=== PATIENT | female | born 1940 | race Caucasian/White ===

== ENCOUNTER 2017-10-29 12:02 | Observation (INO) | payer MEDICARE, OTHER ==
[~2017-10-29] VITALS: Ht 149.9 cm; Wt 63.0 kg
[~2017-10-29 12:02] MED LIST: ASPI-1053 PO; BENA10TA10 PO; CITA-279 PO; PANT-47 PO; SIMV20TA PO
[2017-10-29 12:26] LABS: BASOPHILS % (AUTO) 0.7 % (0-1); EOSINOPHILS # (AUTO) 0.1 X10'3 (0-0.9); EOSINOPHILS % (AUTO) 1.4 % (0-6); HEMATOCRIT 33.3 % (35.0-45.0); HEMOGLOBIN 11.6 g/dl (12.0-16.0); LYMPHOCYTES # (AUTO) 1.6 X10'3 (1.1-4.8); LYMPHOCYTES % (AUTO) 22.9 % (21-51); MEAN CORPUSCULAR HEMOGLOBIN 29.1 PG (27.0-31.0); MEAN CORPUSCULAR HGB CONC 34.7 % (33.0-36.5); MEAN CORPUSCULAR VOLUME 83.7 FL (78-98); MEAN PLATELET VOLUME 6.9 FL (7.4-10.4); MONOCYTES # (AUTO) 0.7 X10'3 (0-0.9); MONOCYTES % (AUTO) 10.2 % (2-12); NEUTROPHILS # (AUTO) 4.5 X10'3 (1.8-7.7); NEUTROPHILS % (AUTO) 64.8 % (42-75); PLATELET COUNT 328 X10'3 (140-440); RED BLOOD COUNT 3.98 X10'6 (4.20-5.60); RED CELL DISTRIBUTION WIDTH 13.3 % (11.5-14.5)
[2017-10-29 12:36] LABS: PARTIAL THROMBOPLASTIN TIME 25 SECONDS (22-32); PROTHROMBIN TIME 10.1 SECONDS (9.0-12.0)
[2017-10-29 12:57] LABS: ALANINE AMINOTRANSFERASE 14 U/L (12-78); ALBUMIN/GLOBULIN RATIO 1.2 (1.1-1.5); ALKALINE PHOSPHATASE 87 IU/L (46-116); ANION GAP 13 (8-16); ASPARTATE AMINO TRANSFERASE 20 U/L (10-37); BILIRUBIN,TOTAL 0.3 MG/DL (0.1-1.0); BLOOD UREA NITROGEN 33 MG/DL (7-18); BUN/CREATININE RATIO 19.8 (6.6-38.0); CALCIUM 9.3 MG/DL (8.5-10.1); CHLORIDE 94 MMOL/L (99-107); CREATININE 1.67 MG/DL (0.40-0.90); GLUCOSE 132 MG/DL (70-104); POTASSIUM 4.7 MMOL/L (3.5-5.1); SODIUM 130 MMOL/L (135-145); TOTAL PROTEIN 7.3 G/DL (6.4-8.2); eGFR 30 ML/MIN
[2017-10-29] MEDS ORDERED: aspirin 325mg tablet PO ONE (14:10)
[2017-10-29] MEDS ORDERED: NITR0.4T51 SL (14:21)
[2017-10-29] MEDS ORDERED: AMLO5TAB4 PO (14:21)
[2017-10-29] MEDS ORDERED: potassium Cl 20 mEq SR tablet PO PRN ×2 (14:35)
[2017-10-29] MEDS ORDERED: potassium Cl 40MEQ/NS 500ml 500 ML IV PRN ×2 (14:35)
[2017-10-29] MEDS ORDERED: HYDROcodone/acetaminophen 10/325mg tab PO PRN (14:35)
[2017-10-29] MEDS ORDERED: acetaminophen 325mg tablet PO PRN (14:35)
[2017-10-29] MEDS ORDERED: HYDROcodone/acetaminophen 5mg/325mg tablet PO PRN (14:35)
[2017-10-29] MEDS ORDERED: ondansetron/PF 4mg/2ml inj IV PRN (14:35)
[2017-10-29] MEDS ORDERED: magnesium Cl slow-release 64mg tablet PO PRN (14:35)
[2017-10-29] MEDS ORDERED: magnesium 4gm in 100ml NS 100 ML IV PRN (14:35)
[2017-10-29] MEDS ORDERED: morphine 4 MG/ML inj SYRINge IV PRN ×2 (14:35)
[2017-10-29] MEDS ORDERED: mag hydrox/Alum hydrox/simeth 30ml oral suspension PO PRN (14:35)
[2017-10-29] MEDS ORDERED: magnesium hydroxide 30ml (MOM) UD suspension PO PRN (14:35)
[2017-10-29] MEDS ORDERED: magnesium 2GM in 50ml NS 50 ML IV PRN (14:35)
[2017-10-29] MEDS: K and/or MAG REPLACEMENT MC SCH (14:42)
[2017-10-29] MEDS ORDERED: magnesium/D5W IVPB 100 ML IV PRN (14:45)
[2017-10-29] MEDS: normal saline 1000ml 1,000 ML IV SCH ×2 (14:54→20:36)
[2017-10-29] MEDS ORDERED: nitroGLYCERIN 0.4mg SUBLingual tab SL PRN (16:20)
[2017-10-29] MEDS: pantoprazole 40mg Tablet.DR PO SCH (16:20)
[2017-10-29] MEDS: citalopram 20mg tablet PO SCH (16:20)
[2017-10-29] MEDS: heparin, porcine 5000 units/ml vial SQ SCH (16:44)
[2017-10-29 20:22] VITALS: BP 137/49
[2017-10-29] MEDS: metoprolol tartrate 12.5mg (1/2 tablet) PO SCH (20:28)
[2017-10-29] MEDS: lisinopril 20mg tablet PO SCH (20:28)
[2017-10-29] MEDS ORDERED: temazepam 15mg capsule PO PRN (21:00)
[2017-10-29 23:00] VITALS: BP 119/38
[2017-10-30] MEDS: heparin, porcine 5000 units/ml vial SQ SCH ×3 (01:13→16:00)
[2017-10-30 01:15] LABS: HEMATOCRIT 33.4 % (35.0-45.0); HEMOGLOBIN 10.9 g/dl (12.0-16.0); MEAN CORPUSCULAR HGB CONC 32.5 % (33.0-36.5); MEAN PLATELET VOLUME 7.3 FL (7.4-10.4); PLATELET COUNT 283 X10'3 (140-440); RED BLOOD COUNT 3.88 X10'6 (4.20-5.60); RED CELL DISTRIBUTION WIDTH 12.9 % (11.5-14.5); WHITE BLOOD COUNT 5.9 X10'3 (4.5-11.0)
[2017-10-30 01:24] LABS: ALBUMIN 3.5 G/DL (3.4-5.0); ANION GAP 10 (8-16); BLOOD UREA NITROGEN 33 MG/DL (7-18); BUN/CREATININE RATIO 23.2 (6.6-38.0); CALCIUM 9.4 MG/DL (8.5-10.1); CHLORIDE 100 MMOL/L (99-107); CREATININE 1.42 MG/DL (0.40-0.90); GLUCOSE 92 MG/DL (70-104); MAGNESIUM 1.9 MG/DL (1.5-2.4); POTASSIUM 4.5 MMOL/L (3.5-5.1); SODIUM 135 MMOL/L (135-145); TOTAL CARBON DIOXIDE 24.8 MMOL/L (24-32); eGFR 36 ML/MIN
[2017-10-30 03:00] VITALS: BP 105/42
[2017-10-30 05:30] VITALS: BP 137/47
[2017-10-30] MEDS: lisinopril 20mg tablet PO SCH (07:58)
[2017-10-30] MEDS: pantoprazole 40mg Tablet.DR PO SCH (07:58)
[2017-10-30] MEDS: citalopram 20mg tablet PO SCH (07:59)
[2017-10-30] MEDS ORDERED: atorvastatin 10mg tablet PO SCH (08:00)
[2017-10-30] MEDS ORDERED: aspirin 81mg tab.chew PO SCH (08:00)
[2017-10-30] MEDS: metoprolol tartrate 12.5mg (1/2 tablet) PO SCH (08:00)
[2017-10-30] MEDS: K and/or MAG REPLACEMENT MC SCH (08:00)
[2017-10-30] MEDS: normal saline 1000ml 1,000 ML IV SCH (08:18)
[2017-10-30 11:00] VITALS: BP 136/41
[2017-10-30 15:00] VITALS: BP 140/42
[2017-10-30] MEDS ORDERED: METO25TA6 PO (15:08)
== END 2017-10-30 17:20 | disposition home or self-care (01) ==
LOC: ER 12:03 → ED HOLD 14:32 → PCU 3S 20:07
PROVIDERS: ADMIT Family Medicine; ATTEND Family Medicine
DX: R07.89 Other chest pain (principal); I12.9 Hypertensive chronic kidney disease with stage 1 through stage 4 chronic kidney disease, or unspecified chronic kidney disease; N18.3 Chronic kidney disease, stage 3 (moderate); E78.5 Hyperlipidemia, unspecified; E87.1 Hypo-osmolality and hyponatremia; D64.9 Anemia, unspecified; F32.9 Major depressive disorder, single episode, unspecified; E78.00 Pure hypercholesterolemia, unspecified; I25.10 Atherosclerotic heart disease of native coronary artery without angina pectoris; R01.1 Cardiac murmur, unspecified; K21.9 Gastro-esophageal reflux disease without esophagitis; Z86.73 Personal history of transient ischemic attack (TIA), and cerebral infarction without residual deficits; Z87.19 Personal history of other diseases of the digestive system; Z80.1 Family history of malignant neoplasm of trachea, bronchus and lung; Z90.710 Acquired absence of both cervix and uterus
CPT/HCPCS: 36415; 71045; 80048; 80053; 83735; 84484; 85025; 85027; 85610; 85730; 87070; 96360; 96361; 96372; 99285; G0378; J1644; J7030

== ENCOUNTER 2019-01-02 11:00 | Emergency (ER) | payer MEDICARE, OTHER ==
[~2019-01-02] VITALS: Ht 152.4 cm; Wt 59.1 kg
[~2019-01-02 11:00] MED LIST changes: +AMLO5TAB4 PO; -BENA10TA10 PO; +BENA10TA75 PO; +CITA-157 PO; -CITA-279 PO; +METO25TA6 PO; +NITR0.4T51 SL
[2019-01-02 11:27] VITALS: BP 166/72
[2019-01-02] MEDS ORDERED: METH4TAB81 PO (11:40)
== END 2019-01-02 12:12 | disposition home or self-care (01) ==
LOC: ER 11:01
DX: L29.9 Pruritus, unspecified (principal); I25.10 Atherosclerotic heart disease of native coronary artery without angina pectoris; E78.00 Pure hypercholesterolemia, unspecified; I10 Essential (primary) hypertension; Z88.6 Allergy status to analgesic agent; Z86.73 Personal history of transient ischemic attack (TIA), and cerebral infarction without residual deficits; Z88.2 Allergy status to sulfonamides; Z79.82 Long term (current) use of aspirin; Z79.899 Other long term (current) drug therapy
CPT/HCPCS: 99283

== ENCOUNTER 2020-10-29 06:24 | Emergency (ER) | payer MEDICARE, OTHER ==
[~2020-10-29] VITALS: Ht 152.4 cm; Wt 65.5 kg
[~2020-10-29 06:24] MED LIST changes: +LOP25T PO; +METH4TAB81 PO; -METO25TA6 PO
[2020-10-29] MEDS ORDERED: clopidogrel 75mg tablet PO ONE (07:45)
[2020-10-29 07:48] LABS: BASOPHILS # (AUTO) 0.1 X10'3 (0-0.2); BASOPHILS % (AUTO) 0.8 % (0-1); EOSINOPHILS # (AUTO) 0.2 X10'3 (0-0.9); EOSINOPHILS % (AUTO) 3.2 % (0-6); HEMATOCRIT 34.6 % (35.0-45.0); HEMOGLOBIN 11.6 g/dl (12.0-16.0); LYMPHOCYTES # (AUTO) 1.2 X10'3 (1.1-4.8); LYMPHOCYTES % (AUTO) 16.5 % (21-51); MEAN CORPUSCULAR HEMOGLOBIN 29.7 PG (27.0-31.0); MEAN CORPUSCULAR HGB CONC 33.6 g/dL (33.0-36.5); MEAN CORPUSCULAR VOLUME 88.3 FL (78-98); MONOCYTES # (AUTO) 0.7 X10'3 (0-0.9); MONOCYTES % (AUTO) 9.3 % (2-12); NEUTROPHILS # (AUTO) 5.1 X10'3 (1.8-7.7); NEUTROPHILS % (AUTO) 70.2 % (42-75); PLATELET COUNT 265 X10'3 (140-440); RED BLOOD COUNT 3.92 X10'6 (4.20-5.60); RED CELL DISTRIBUTION WIDTH 13.3 % (11.5-14.5); WHITE BLOOD COUNT 7.3 X10'3 (4.5-11.0)
[2020-10-29] MEDS ORDERED: CLOP75TA15 PO (08:00)
[2020-10-29] MEDS ORDERED: ATOR40TA71 PO (08:00)
[2020-10-29 08:01] LABS: PARTIAL THROMBOPLASTIN TIME 25 SECONDS (22-32)
[2020-10-29 08:02] LABS: ALANINE AMINOTRANSFERASE 15 U/L (12-78); ALBUMIN 3.6 G/DL (3.4-5.0); ALBUMIN/GLOBULIN RATIO 1.1 (1.1-1.5); ALKALINE PHOSPHATASE 63 IU/L (46-116); ANION GAP 8 (8-16); ASPARTATE AMINO TRANSFERASE 21 U/L (10-37); BILIRUBIN,TOTAL 0.4 MG/DL (0.1-1.0); BLOOD UREA NITROGEN 30 MG/DL (7-18); BUN/CREATININE RATIO 14.9 (6.6-38.0); CALCIUM 9.7 MG/DL (8.5-10.1); CHLORIDE 108 MMOL/L (99-107); CREATININE 2.02 MG/DL (0.40-0.90); GLUCOSE 101 MG/DL (70-104); SODIUM 144 MMOL/L (135-145); TOTAL CARBON DIOXIDE 28.2 MMOL/L (24-32); TOTAL PROTEIN 6.9 G/DL (6.4-8.2); eGFR 24 ML/MIN
[2020-10-29 08:40] VITALS: BP 163/76
== END 2020-10-29 08:42 | disposition home or self-care (01) ==
LOC: ER 06:25
DX: I63.9 Cerebral infarction, unspecified (principal); R42 Dizziness and giddiness; N18.9 Chronic kidney disease, unspecified; I25.10 Atherosclerotic heart disease of native coronary artery without angina pectoris; I12.9 Hypertensive chronic kidney disease with stage 1 through stage 4 chronic kidney disease, or unspecified chronic kidney disease; E78.00 Pure hypercholesterolemia, unspecified; Z86.73 Personal history of transient ischemic attack (TIA), and cerebral infarction without residual deficits; Z79.82 Long term (current) use of aspirin; Z79.899 Other long term (current) drug therapy; Z88.2 Allergy status to sulfonamides; Z88.8 Allergy status to other drugs, medicaments and biological substances
CPT/HCPCS: 36415; 70450; 71045; 80053; 82948; 84484; 85025; 85610; 85730; 93005; 99285

== ENCOUNTER 2021-06-22 15:58 | Emergency (ER) | payer MEDICARE, OTHER ==
[~2021-06-22] VITALS: Ht 149.9 cm; Wt 54.5 kg
[~2021-06-22 15:58] MED LIST changes: +ATOR40TA71 PO; +CLOP75TA15 PO
[2021-06-22 16:54] VITALS: BP 130/90
[2021-06-22 17:51] LABS: BASOPHILS # (AUTO) 0.1 X10'3 (0-0.2); BASOPHILS % (AUTO) 1.1 % (0-1); EOSINOPHILS # (AUTO) 0.3 X10'3 (0-0.9); EOSINOPHILS % (AUTO) 2.9 % (0-6); HEMATOCRIT 37.7 % (35.0-45.0); HEMOGLOBIN 12.7 g/dl (12.0-16.0); LYMPHOCYTES # (AUTO) 2.2 X10'3 (1.1-4.8); LYMPHOCYTES % (AUTO) 23.6 % (21-51); MEAN CORPUSCULAR HEMOGLOBIN 29.1 PG (27.0-31.0); MEAN CORPUSCULAR HGB CONC 33.6 g/dL (33.0-36.5); MEAN CORPUSCULAR VOLUME 86.5 FL (78-98); MEAN PLATELET VOLUME 7.1 FL (7.4-10.4); MONOCYTES % (AUTO) 10.6 % (2-12); NEUTROPHILS # (AUTO) 5.8 X10'3 (1.8-7.7); NEUTROPHILS % (AUTO) 61.8 % (42-75); PLATELET COUNT 318 X10'3 (140-440); RED BLOOD COUNT 4.36 X10'6 (4.20-5.60); RED CELL DISTRIBUTION WIDTH 13.7 % (11.5-14.5); WHITE BLOOD COUNT 9.5 X10'3 (4.5-11.0)
[2021-06-22 18:05] LABS: APTT 25 SECONDS (22-32)
[2021-06-22] MEDS ORDERED: PROCHC RC (21:21)
== END 2021-06-22 21:44 | disposition home or self-care (01) ==
LOC: ER 15:59
DX: K64.9 Unspecified hemorrhoids (principal); I25.10 Atherosclerotic heart disease of native coronary artery without angina pectoris; E78.00 Pure hypercholesterolemia, unspecified; I10 Essential (primary) hypertension; Z86.73 Personal history of transient ischemic attack (TIA), and cerebral infarction without residual deficits; Z88.2 Allergy status to sulfonamides; Z88.8 Allergy status to other drugs, medicaments and biological substances; Z79.82 Long term (current) use of aspirin; Z79.899 Other long term (current) drug therapy; Z87.19 Personal history of other diseases of the digestive system
CPT/HCPCS: 36415; 85025; 85610; 85730; 99283

== ENCOUNTER 2021-07-17 16:53 | Emergency (ER) | payer MEDICARE, OTHER ==
[~2021-07-17] VITALS: Ht 152.4 cm; Wt 63.6 kg
[~2021-07-17 16:53] MED LIST changes: +PROCHC RC
[2021-07-17 18:11] LABS: BASOPHILS # (AUTO) 0.1 X10'3 (0-0.2); BASOPHILS % (AUTO) 0.7 % (0-1); EOSINOPHILS # (AUTO) 0.3 X10'3 (0-0.9); HEMOGLOBIN 11.7 g/dl (12.0-16.0); LYMPHOCYTES # (AUTO) 1.3 X10'3 (1.1-4.8); LYMPHOCYTES % (AUTO) 12.6 % (21-51); MEAN CORPUSCULAR HGB CONC 33.5 g/dL (33.0-36.5); MEAN CORPUSCULAR VOLUME 86.6 FL (78-98); MEAN PLATELET VOLUME 7.3 FL (7.4-10.4); MONOCYTES # (AUTO) 0.9 X10'3 (0-0.9); MONOCYTES % (AUTO) 9.2 % (2-12); NEUTROPHILS # (AUTO) 7.5 X10'3 (1.8-7.7); NEUTROPHILS % (AUTO) 74.5 % (42-75); PLATELET COUNT 309 X10'3 (140-440); RED BLOOD COUNT 4.04 X10'6 (4.20-5.60); RED CELL DISTRIBUTION WIDTH 13.8 % (11.5-14.5); WHITE BLOOD COUNT 10.1 X10'3 (4.5-11.0)
[2021-07-17 18:41] LABS: ALANINE AMINOTRANSFERASE 14 U/L (12-78); ALBUMIN 4.1 G/DL (3.4-5.0); ALBUMIN/GLOBULIN RATIO 1.5 (1.1-1.5); ANION GAP 15 (8-16); ASPARTATE AMINO TRANSFERASE 22 U/L (10-37); BILIRUBIN,TOTAL 0.3 MG/DL (0.1-1.0); BLOOD UREA NITROGEN 28 MG/DL (7-18); BUN/CREATININE RATIO 12.8 (6.6-38.0); CALCIUM 9.5 MG/DL (8.5-10.1); CHLORIDE 103 MMOL/L (99-107); CREATININE 2.19 MG/DL (0.40-0.90); GLUCOSE 100 MG/DL (70-104); POTASSIUM 4.1 MMOL/L (3.5-5.1); SODIUM 140 MMOL/L (135-145); TOTAL CARBON DIOXIDE 22.5 MMOL/L (24-32); TOTAL PROTEIN 6.9 G/DL (6.4-8.2); eGFR 22 ML/MIN
[2021-07-17 19:58] VITALS: BP 175/107
== END 2021-07-17 21:14 | disposition home or self-care (01) ==
LOC: ER 16:53
DX: I12.9 Hypertensive chronic kidney disease with stage 1 through stage 4 chronic kidney disease, or unspecified chronic kidney disease (principal); N18.9 Chronic kidney disease, unspecified; R42 Dizziness and giddiness; I25.10 Atherosclerotic heart disease of native coronary artery without angina pectoris; E78.00 Pure hypercholesterolemia, unspecified; Z86.73 Personal history of transient ischemic attack (TIA), and cerebral infarction without residual deficits; Z60.2 Problems related to living alone; Z88.8 Allergy status to other drugs, medicaments and biological substances; Z88.2 Allergy status to sulfonamides; Z79.82 Long term (current) use of aspirin; Z79.899 Other long term (current) drug therapy
CPT/HCPCS: 36415; 80053; 85025; 93005; 99284

== ENCOUNTER 2021-08-06 13:01 | Inpatient (IN) | payer MEDICARE, OTHER ==
[~2021-08-06] VITALS: Ht 134.6 cm; Wt 63.6 kg
[2021-08-06 13:37] LABS: BASOPHILS # (AUTO) 0.1 X10'3 (0-0.2); BASOPHILS % (AUTO) 0.7 % (0-1); EOSINOPHILS # (AUTO) 0.2 X10'3 (0-0.9); EOSINOPHILS % (AUTO) 2.3 % (0-6); HEMOGLOBIN 11.8 g/dl (12.0-16.0); LYMPHOCYTES # (AUTO) 1.2 X10'3 (1.1-4.8); LYMPHOCYTES % (AUTO) 11.6 % (21-51); MEAN CORPUSCULAR HEMOGLOBIN 28.5 PG (27.0-31.0); MEAN CORPUSCULAR HGB CONC 32.9 g/dL (33.0-36.5); MEAN CORPUSCULAR VOLUME 86.5 FL (78-98); MONOCYTES % (AUTO) 9.5 % (2-12); NEUTROPHILS # (AUTO) 7.7 X10'3 (1.8-7.7); NEUTROPHILS % (AUTO) 75.9 % (42-75); PLATELET COUNT 313 X10'3 (140-440); RED BLOOD COUNT 4.16 X10'6 (4.20-5.60); RED CELL DISTRIBUTION WIDTH 13.7 % (11.5-14.5); WHITE BLOOD COUNT 10.2 X10'3 (4.5-11.0)
[2021-08-06 13:44] LABS: APTT 25 SECONDS (22-32)
[2021-08-06 13:51] LABS: ALANINE AMINOTRANSFERASE 10 U/L (12-78); ALBUMIN 3.8 G/DL (3.4-5.0); ALBUMIN/GLOBULIN RATIO 1.1 (1.1-1.5); ALKALINE PHOSPHATASE 74 IU/L (46-116); ANION GAP 11 (8-16); ASPARTATE AMINO TRANSFERASE 18 U/L (10-37); BILIRUBIN,TOTAL 0.3 MG/DL (0.1-1.0); BLOOD UREA NITROGEN 27 MG/DL (7-18); BUN/CREATININE RATIO 13.5 (6.6-38.0); CALCIUM 9.7 MG/DL (8.5-10.1); CHLORIDE 102 MMOL/L (99-107); GLUCOSE 135 MG/DL (70-104); POTASSIUM 4.3 MMOL/L (3.5-5.1); SODIUM 140 MMOL/L (135-145); TOTAL CARBON DIOXIDE 26.6 MMOL/L (24-32); TOTAL PROTEIN 7.3 G/DL (6.4-8.2); eGFR 24 ML/MIN
--- NOTE | 2021-08-06 16:30 | NUR ---
Patient ambulates to restroom with use of walker; gait steady.
[2021-08-06] MEDS ORDERED: temazepam 15mg capsule PO PRN (21:00)
[2021-08-06] MEDS ORDERED: ondansetron 4mg rapidly disintigrating tab PO PRN (21:40)
[2021-08-06] MEDS ORDERED: mag hydrox/Alum hydrox/simeth 30ml oral suspension PO PRN (21:40)
[2021-08-06] MEDS ORDERED: HYDROcodone/acetaminophen 5mg/325mg tablet PO PRN (21:40)
[2021-08-06] MEDS ORDERED: magnesium hydroxide 30ml (MOM) UD suspension PO PRN (21:40)
[2021-08-06] MEDS ORDERED: diphenhydrAMINE 25mg capsule PO PRN (21:40)
[2021-08-06] MEDS ORDERED: bisacodyl 10mg suppository rectal RC PRN (21:40)
[2021-08-06] MEDS ORDERED: ondansetron/PF 4mg/2ml inj IV PRN (21:40)
[2021-08-06] MEDS ORDERED: morphine 2 MG/ML inj. syringe IV PRN (21:40)
[2021-08-06] MEDS ORDERED: acetaminophen 650mg rectal suppository RC PRN (21:40)
[2021-08-06] MEDS ORDERED: acetaminophen 325mg tablet PO PRN ×2 (21:40)
[2021-08-06] MEDS: normal saline 1000ml 1,000 ML IV SCH (21:40)
[2021-08-06] MEDS ORDERED: diphenhydrAMINE 50 mg/ml inj IV PRN (21:40)
[2021-08-06 22:01] LABS: CLARITY,URINE CLEAR (Clear); COLOR,URINE YELLOW (Yellow); GLUCOSE, URINE NEGATIVE (Neg); KETONES,URINE NEGATIVE (Neg); LEUKOCYTE ESTERASE ,URINE NEGATIVE (Neg); NITRITES, URINE NEGATIVE (Neg); OCCULT BLOOD,URINE NEGATIVE (Neg); PH,URINE 6.5 (4.8-8.0); PROTEIN,URINE TRACE mg/dl (Neg); UROBILINOGEN,URINE 0.2 E.U/dL (0.2-1.0)
[2021-08-06 22:03] LABS: HEMOGLOBIN A1C 5.6 % (4.5-6.2)
[2021-08-06 22:09] LABS: UA COLLECTION TYPE NON-SPECIFIED
[2021-08-06 22:11] LABS: BACTERIA,URINE NONE SEEN /HPF (Neg); RBC,URINE 0-2 /HPF (0-2); WBC,URINE 0-4 /HPF (0-4)
[2021-08-06 22:12] LABS: MUCUS STRANDS FEW /LPF (Neg); SQUAMOUS EPITHELIAL CELL,UR FEW /LPF (FEW)
[2021-08-06 22:18] LABS: CREATINE KINASE 40 U/L (26-192); LIPASE 127 U/L (73-393); MAGNESIUM 2.2 MG/DL (1.5-2.4)
[2021-08-06 23:30] VITALS: BP 164/77
[2021-08-06] MEDS ORDERED: CLOP75TA34 PO (23:49)
[2021-08-06] MEDS ORDERED: PANT40TA54 PO (23:49)
[2021-08-06] MEDS ORDERED: SIMV-42 PO (23:49)
[2021-08-06] MEDS ORDERED: CITA20TA26 PO (23:49)
[2021-08-06] MEDS ORDERED: CARV3.122 PO (23:49)
[2021-08-07 02:00] VITALS: BP 143/60
[2021-08-07 06:00] VITALS: BP 149/57
[2021-08-07 06:28] LABS: BASOPHILS # (AUTO) 0.1 X10'3 (0-0.2); BASOPHILS % (AUTO) 0.9 % (0-1); EOSINOPHILS # (AUTO) 0.2 X10'3 (0-0.9); HEMATOCRIT 34.1 % (35.0-45.0); HEMOGLOBIN 11.3 g/dl (12.0-16.0); LYMPHOCYTES # (AUTO) 1.3 X10'3 (1.1-4.8); LYMPHOCYTES % (AUTO) 16.6 % (21-51); MEAN CORPUSCULAR HEMOGLOBIN 28.6 PG (27.0-31.0); MEAN CORPUSCULAR HGB CONC 33.1 g/dL (33.0-36.5); MEAN CORPUSCULAR VOLUME 86.5 FL (78-98); MONOCYTES # (AUTO) 0.8 X10'3 (0-0.9); NEUTROPHILS # (AUTO) 5.5 X10'3 (1.8-7.7); NEUTROPHILS % (AUTO) 69.5 % (42-75); PLATELET COUNT 233 X10'3 (140-440); RED BLOOD COUNT 3.94 X10'6 (4.20-5.60); RED CELL DISTRIBUTION WIDTH 13.5 % (11.5-14.5)
[2021-08-07 07:03] LABS: ALANINE AMINOTRANSFERASE 9 U/L (12-78); ALBUMIN 3.4 G/DL (3.4-5.0); ALBUMIN/GLOBULIN RATIO 1.1 (1.1-1.5); ALKALINE PHOSPHATASE 61 IU/L (46-116); ANION GAP 12 (8-16); ASPARTATE AMINO TRANSFERASE 19 U/L (10-37); BILIRUBIN,TOTAL 0.3 MG/DL (0.1-1.0); BLOOD UREA NITROGEN 23 MG/DL (7-18); BUN/CREATININE RATIO 13.9 (6.6-38.0); CALCIUM 9.4 MG/DL (8.5-10.1); CHLORIDE 108 MMOL/L (99-107); CHOL/HDL RATIO 3.2 (0.00-4.99); CHOLESTEROL 177 MG/DL (0-200); CREATININE 1.65 MG/DL (0.40-0.90); GLUCOSE 100 MG/DL (70-104); HDL CHOLESTEROL 56 MG/DL (35-60); LDL CHOLESTEROL 93 MG/DL (50-100); POTASSIUM 3.8 MMOL/L (3.5-5.1); SODIUM 142 MMOL/L (135-145); TOTAL CARBON DIOXIDE 22.2 MMOL/L (24-32); TOTAL PROTEIN 6.5 G/DL (6.4-8.2); TRIGLYCERIDES 103 MG/DL (20-135); eGFR 30 ML/MIN
[2021-08-07] MEDS: normal saline 1000ml 1,000 ML IV SCH ×2 (07:40→17:43)
[2021-08-07] MEDS: aspirin 81mg tab.chew PO SCH (08:20)
[2021-08-07] MEDS: CITALOpram 10mg tablet PO SCH (08:20)
[2021-08-07] MEDS: atorvastatin 10mg tablet PO SCH (08:20)
[2021-08-07] MEDS: docusate sod 100mg capsule PO SCH ×2 (08:20→21:04)
[2021-08-07] MEDS: heparin, porcine 5000 units/ml vial SQ SCH ×2 (08:21→21:04)
[2021-08-07] MEDS: pantoprazole 40mg Tablet.DR PO SCH (08:21)
[2021-08-07] MEDS: clopidogrel 75mg tablet PO SCH (08:21)
[2021-08-07] MEDS: carVEDilol 3.125mg tablet PO SCH ×2 (08:21→21:04)
[2021-08-07 11:00] VITALS: BP 148/49
[2021-08-07 18:00] VITALS: BP 132/52
[2021-08-07 22:00] VITALS: BP 141/51
[2021-08-08 02:00] VITALS: BP 149/64
[2021-08-08] MEDS: normal saline 1000ml 1,000 ML IV SCH (05:54)
[2021-08-08] MEDS: carVEDilol 3.125mg tablet PO SCH (08:53)
[2021-08-08] MEDS: aspirin 81mg tab.chew PO SCH (08:53)
[2021-08-08] MEDS: pantoprazole 40mg Tablet.DR PO SCH (08:53)
[2021-08-08] MEDS: CITALOpram 10mg tablet PO SCH (08:53)
[2021-08-08] MEDS: docusate sod 100mg capsule PO SCH (08:53)
[2021-08-08] MEDS: atorvastatin 10mg tablet PO SCH (08:53)
[2021-08-08] MEDS: clopidogrel 75mg tablet PO SCH (08:53)
[2021-08-08] MEDS: heparin, porcine 5000 units/ml vial SQ SCH (08:54)
== END 2021-08-08 14:35 | disposition home or self-care (01) | DRG 69 ==
LOC: ER 13:02 → ED HOLD 21:45 → MED 3N 23:20 → UNDODISIN 08-07 17:57
PROVIDERS: ADMIT Family Medicine; ATTEND Internal Medicine
DX: G45.9 Transient cerebral ischemic attack, unspecified (principal); N17.9 Acute kidney failure, unspecified; G81.94 Hemiplegia, unspecified affecting left nondominant side; E78.00 Pure hypercholesterolemia, unspecified; Z60.2 Problems related to living alone; R29.700 NIHSS score 0; I12.9 Hypertensive chronic kidney disease with stage 1 through stage 4 chronic kidney disease, or unspecified chronic kidney disease; I35.0 Nonrheumatic aortic (valve) stenosis; N18.9 Chronic kidney disease, unspecified; E78.5 Hyperlipidemia, unspecified; M17.12 Unilateral primary osteoarthritis, left knee; I25.10 Atherosclerotic heart disease of native coronary artery without angina pectoris; Z79.02 Long term (current) use of antithrombotics/antiplatelets; Z88.2 Allergy status to sulfonamides; Z88.8 Allergy status to other drugs, medicaments and biological substances; Z82.3 Family history of stroke; Z79.899 Other long term (current) drug therapy
CPT/HCPCS: 36415; 70450; 70544; 70551; 71045; 80053; 80061; 81001; 82550; 83036; 83690; 83735; 83880; 84100; 84443; 84484; 85025; 85610; 85730; 87081; 93005; 93306; 97161; 97530; 99285; G0378; J1644; J7030

== ENCOUNTER 2022-08-20 23:12 | Emergency (ER) | payer MEDICARE, OTHER ==
[~2022-08-20] VITALS: Ht 144.8 cm; Wt 60.9 kg
[~2022-08-20 23:12] MED LIST changes: -ATOR40TA71 PO; -BENA10TA75 PO; +CARV3.122 PO; -CITA-157 PO; +CITA20TA26 PO; -CLOP75TA15 PO; +CLOP75TA34 PO; -LOP25T PO; -METH4TAB81 PO; -NITR0.4T51 SL; -PANT-47 PO; +PANT40TA54 PO; -PROCHC RC; +SIMV-42 PO; -SIMV20TA PO
[2022-08-21] MEDS ORDERED: LORazepam 1 MG tablet PO ONE (00:20)
[2022-08-21 00:35] LABS: CLARITY,URINE CLEAR (Clear); COLOR,URINE YELLOW (Yellow); GLUCOSE, URINE NEGATIVE (Neg); KETONES,URINE NEGATIVE (Neg); LEUKOCYTE ESTERASE ,URINE NEGATIVE (Neg); NITRITES, URINE NEGATIVE (Neg); OCCULT BLOOD,URINE NEGATIVE (Neg); PROTEIN,URINE 30 mg/dl (Neg); UROBILINOGEN,URINE 0.2 E.U/dL (0.2-1.0)
[2022-08-21 00:47] LABS: UA COLLECTION TYPE CLN CATCH MIDSTREAM
[2022-08-21 00:53] LABS: BACTERIA,URINE NONE SEEN /HPF (Neg); MUCUS STRANDS FEW /LPF (Neg); RBC,URINE 0-2 /HPF (0-2); SQUAMOUS EPITHELIAL CELL,UR FEW /LPF (FEW); TRANSITIONAL EPI CELLS,URINE FEW /HPF; WBC,URINE 0-4 /HPF (0-4)
[2022-08-21 02:01] LABS: BASOPHILS # (AUTO) 0.1 X10'3 (0-0.2); BASOPHILS % (AUTO) 0.6 % (0-1); EOSINOPHILS # (AUTO) 0.2 X10'3 (0-0.9); EOSINOPHILS % (AUTO) 2.3 % (0-6); HEMATOCRIT 31.6 % (35.0-45.0); HEMOGLOBIN 10.9 g/dl (12.0-16.0); LYMPHOCYTES # (AUTO) 1.3 X10'3 (1.1-4.8); LYMPHOCYTES % (AUTO) 13.1 % (21-51); MEAN CORPUSCULAR HEMOGLOBIN 29.2 PG (27.0-31.0); MEAN CORPUSCULAR HGB CONC 34.5 g/dL (33.0-36.5); MEAN CORPUSCULAR VOLUME 84.8 FL (78-98); MEAN PLATELET VOLUME 6.5 FL (7.4-10.4); MONOCYTES # (AUTO) 0.9 X10'3 (0-0.9); MONOCYTES % (AUTO) 8.8 % (2-12); NEUTROPHILS # (AUTO) 7.7 X10'3 (1.8-7.7); NEUTROPHILS % (AUTO) 75.2 % (42-75); PLATELET COUNT 305 X10'3 (140-440); RED BLOOD COUNT 3.73 X10'6 (4.20-5.60); RED CELL DISTRIBUTION WIDTH 13.5 % (11.5-14.5); WHITE BLOOD COUNT 10.3 X10'3 (4.5-11.0)
[2022-08-21 02:16] LABS: ALANINE AMINOTRANSFERASE 8 U/L (12-78); ALBUMIN 3.8 G/DL (3.4-5.0); ALBUMIN/GLOBULIN RATIO 1.2 (1.1-1.5); ALKALINE PHOSPHATASE 78 IU/L (46-116); ANION GAP 10 (8-16); ASPARTATE AMINO TRANSFERASE 16 U/L (10-37); BILIRUBIN,TOTAL 0.4 MG/DL (0.1-1.0); BLOOD UREA NITROGEN 30 MG/DL (7-18); BUN/CREATININE RATIO 16.5 (10.0-20.0); CALCIUM 10.2 MG/DL (8.5-10.1); CHLORIDE 96 MMOL/L (99-107); CREATININE 1.82 MG/DL (0.40-0.90); GLUCOSE 123 MG/DL (70-104); POTASSIUM 3.5 MMOL/L (3.5-5.1); SODIUM 133 MMOL/L (135-145); TOTAL CARBON DIOXIDE 27.5 MMOL/L (24-32); eGFR 27 ML/MIN
[2022-08-21] MEDS ORDERED: ringers solution, lacted 1,000 ML IV ONE (02:55)
[2022-08-21] MEDS ORDERED: cloNIDine 0.1 mg tablet PO ONE (03:25)
--- NOTE | 2022-08-21 08:59 | NUR ---
CALLED PT SON MARILYN WILL COME LCSW PT AND TAKE HOME.
[2022-08-21 14:54] VITALS: BP 132/68
== END 2022-08-21 12:30 | disposition home or self-care (01) ==
LOC: ER 23:14
DX: I10 Essential (primary) hypertension (principal); E86.0 Dehydration; E78.00 Pure hypercholesterolemia, unspecified; Z88.2 Allergy status to sulfonamides; Z88.8 Allergy status to other drugs, medicaments and biological substances
CPT/HCPCS: 36415; 71045; 80053; 81001; 83880; 84484; 85025; 93005; 96360; 99285; J7120

== ENCOUNTER 2023-01-23 10:21 | Emergency (ER) | payer MEDICARE, OTHER ==
[~2023-01-23] VITALS: Ht 152.4 cm; Wt 58.2 kg
[2023-01-23 10:37] VITALS: TEMP 98.3
[2023-01-23 11:36] LABS: EOSINOPHILS # (AUTO) 0.2 X10'3 (0-0.9)
[2023-01-23 11:38] LABS: BASOPHILS # (AUTO) 0.1 X10'3 (0-0.2)
[2023-01-23 11:39] LABS: ALANINE AMINOTRANSFERASE 9 U/L (12-78); ALBUMIN 3.9 G/DL (3.4-5.0); ALBUMIN/GLOBULIN RATIO 1.1 (1.1-1.5); ALKALINE PHOSPHATASE 83 IU/L (46-116); ANION GAP 13 (8-16); ASPARTATE AMINO TRANSFERASE 21 U/L (10-37); BILIRUBIN,TOTAL 0.4 MG/DL (0.1-1.0); BLOOD UREA NITROGEN 28 MG/DL (7-18); BUN/CREATININE RATIO 14.9 (10.0-20.0); CALCIUM 9.7 MG/DL (8.5-10.1); CHLORIDE 90 MMOL/L (99-107); CREATININE 1.88 MG/DL (0.40-0.90); GLUCOSE 135 MG/DL (70-104); POTASSIUM 4.2 MMOL/L (3.5-5.1); SODIUM 124 MMOL/L (135-145); TOTAL CARBON DIOXIDE 20.9 MMOL/L (24-32); TOTAL PROTEIN 7.3 G/DL (6.4-8.2); eCRCL 17 ML/MIN; eGFR 26 ML/MIN
[2023-01-23 11:45] LABS: MEAN PLATELET VOLUME 7.1 FL (7.4-10.4); RED CELL DISTRIBUTION WIDTH 13.2 % (11.5-14.5)
[2023-01-23 11:46] LABS: BASOPHILS % (AUTO) 0.6 % (0-1); EOSINOPHILS % (AUTO) 1.7 % (0-6); HEMATOCRIT 32.6 % (35.0-45.0); HEMOGLOBIN 11.2 g/dl (12.0-16.0); LYMPHOCYTES % (AUTO) 9.7 % (21-51); MEAN CORPUSCULAR HEMOGLOBIN 28.9 PG (27.0-31.0); MEAN CORPUSCULAR HGB CONC 34.4 g/dL (33.0-36.5); MONOCYTES % (AUTO) 9.6 % (2-12); NEUTROPHILS # (AUTO) 7.8 X10'3 (1.8-7.7); NEUTROPHILS % (AUTO) 78.4 % (42-75); PLATELET COUNT 314 X10'3 (140-440); RED BLOOD COUNT 3.88 X10'6 (4.20-5.60); WHITE BLOOD COUNT 9.9 X10'3 (4.5-11.0)
[2023-01-23 11:48] LABS: PRO BRAIN NATRIURETIC PEPTIDE 1662 PG/ML (0-450)
[2023-01-23 14:11] VITALS: BP 161/68; PULSE 79; RESP 12; O2SAT 98
[2023-01-23 14:35] LABS: BILIRUBIN,URINE NEGATIVE (Neg); CLARITY,URINE CLEAR (Clear); COLOR,URINE YELLOW (Yellow); GLUCOSE, URINE NEGATIVE (Neg); KETONES,URINE NEGATIVE (Neg); LEUKOCYTE ESTERASE ,URINE NEGATIVE (Neg); NITRITES, URINE NEGATIVE (Neg); OCCULT BLOOD,URINE TRACE-INTACT (Neg); PH,URINE 6.5 (4.8-8.0); PROTEIN,URINE 100 mg/dl (Neg); UROBILINOGEN,URINE 0.2 E.U/dL (0.2-1.0)
[2023-01-23 14:38] LABS: UA COLLECTION TYPE CLN CATCH MIDSTREAM
[2023-01-23 14:55] LABS: BACTERIA,URINE NONE SEEN /HPF (Neg); MUCUS STRANDS NONE SEEN /LPF (Neg); RBC,URINE NONE SEEN /HPF (0-2); SQUAMOUS EPITHELIAL CELL,UR FEW /LPF (FEW); WBC,URINE NONE SEEN /HPF (0-4)
[2023-01-23] MEDS ORDERED: furosemide 20MG tablet PO ONE (14:55)
== END 2023-01-23 15:38 | disposition home or self-care (01) ==
LOC: ER 10:21
DX: I11.0 Hypertensive heart disease with heart failure (principal); E78.00 Pure hypercholesterolemia, unspecified; Z88.6 Allergy status to analgesic agent; Z79.899 Other long term (current) drug therapy
CPT/HCPCS: 36415; 71045; 80053; 81001; 82948; 83880; 84484; 85025; 93005; 99285

== ENCOUNTER 2023-01-24 15:53 | Emergency (ER) | payer MEDICARE, OTHER | END 2023-01-24 16:06 | disposition left against medical advice (07) | LOC: ER 15:53 | DX: Z00.8 Encounter for other general examination (principal); Z53.21 Procedure and treatment not carried out due to patient leaving prior to being seen by health care provider ==

== ENCOUNTER 2023-02-08 10:34 | Emergency (ER) | payer MEDICARE, OTHER ==
[~2023-02-08] VITALS: Ht 149.9 cm; Wt 70.5 kg
[2023-02-08 10:50] VITALS: BP 146/74; PULSE 67; RESP 18; TEMP 98.5; O2SAT 100
[2023-02-08 11:01] LABS: BASOPHILS # (AUTO) 0.1 X10'3 (0-0.2); BASOPHILS % (AUTO) 1.2 % (0-1); EOSINOPHILS # (AUTO) 0.2 X10'3 (0-0.9); EOSINOPHILS % (AUTO) 2.9 % (0-6); HEMATOCRIT 31.2 % (35.0-45.0); HEMOGLOBIN 10.8 g/dl (12.0-16.0); LYMPHOCYTES % (AUTO) 12.4 % (21-51); MEAN CORPUSCULAR HGB CONC 34.5 g/dL (33.0-36.5); MEAN CORPUSCULAR VOLUME 84.1 FL (78-98); MEAN PLATELET VOLUME 6.8 FL (7.4-10.4); MONOCYTES # (AUTO) 0.9 X10'3 (0-0.9); MONOCYTES % (AUTO) 10.3 % (2-12); NEUTROPHILS # (AUTO) 6.1 X10'3 (1.8-7.7); NEUTROPHILS % (AUTO) 73.2 % (42-75); PLATELET COUNT 351 X10'3 (140-440); RED BLOOD COUNT 3.71 X10'6 (4.20-5.60); RED CELL DISTRIBUTION WIDTH 13.6 % (11.5-14.5); WHITE BLOOD COUNT 8.3 X10'3 (4.5-11.0)
[2023-02-08 11:07] LABS: ALANINE AMINOTRANSFERASE 15 U/L (12-78); ALBUMIN 3.9 G/DL (3.4-5.0); ALBUMIN/GLOBULIN RATIO 1.3 (1.1-1.5); ALKALINE PHOSPHATASE 78 IU/L (46-116); ANION GAP 9 (8-16); ASPARTATE AMINO TRANSFERASE 16 U/L (10-37); BILIRUBIN,TOTAL 0.4 MG/DL (0.1-1.0); BLOOD UREA NITROGEN 30 MG/DL (7-18); BUN/CREATININE RATIO 14.3 (10.0-20.0); CHLORIDE 97 MMOL/L (99-107); GLUCOSE 103 MG/DL (70-104); POTASSIUM 4.6 MMOL/L (3.5-5.1); SODIUM 132 MMOL/L (135-145); TOTAL CARBON DIOXIDE 25.8 MMOL/L (24-32); eCRCL 14 ML/MIN; eGFR 23 ML/MIN
[2023-02-08 11:16] LABS: PRO BRAIN NATRIURETIC PEPTIDE 1208 PG/ML (0-450)
== END 2023-02-08 18:16 | disposition left against medical advice (07) ==
LOC: ER 10:35
DX: R06.02 Shortness of breath (principal); Z53.21 Procedure and treatment not carried out due to patient leaving prior to being seen by health care provider
CPT/HCPCS: 36415; 71045; 80053; 83880; 84484; 85025; 93005; 99281

== ENCOUNTER 2023-02-08 19:22 | Emergency (ER) | payer MEDICARE, OTHER ==
[~2023-02-08] VITALS: Ht 152.4 cm; Wt 56.8 kg
[2023-02-08 19:38] VITALS: BP 150/81; PULSE 91; RESP 16; TEMP 97.5; O2SAT 98
== END 2023-02-08 21:10 | disposition left against medical advice (07) ==
LOC: ER 19:22
DX: R53.1 Weakness (principal); Z53.21 Procedure and treatment not carried out due to patient leaving prior to being seen by health care provider
CPT/HCPCS: 99281

== ENCOUNTER 2023-05-20 09:34 | Emergency (ER) | payer MEDICARE, OTHER, MEDICAID ==
[~2023-05-20] VITALS: Ht 149.9 cm; Wt 55.2 kg
[2023-05-20 09:52] VITALS: BP 160/75; PULSE 81; RESP 18; TEMP 97.4; O2SAT 98
[2023-05-20 10:56] LABS: BASOPHILS # (AUTO) 0.1 X10'3 (0-0.2); BASOPHILS % (AUTO) 1.1 % (0-1); EOSINOPHILS # (AUTO) 0.4 X10'3 (0-0.9); EOSINOPHILS % (AUTO) 5.1 % (0-6); HEMATOCRIT 33.1 % (35.0-45.0); LYMPHOCYTES % (AUTO) 11.5 % (21-51); MEAN CORPUSCULAR HEMOGLOBIN 28.7 PG (27.0-31.0); MEAN CORPUSCULAR HGB CONC 33.2 g/dL (33.0-36.5); MEAN CORPUSCULAR VOLUME 86.5 FL (78-98); MEAN PLATELET VOLUME 7.4 FL (7.4-10.4); MONOCYTES # (AUTO) 0.8 X10'3 (0-0.9); MONOCYTES % (AUTO) 9.9 % (2-12); NEUTROPHILS % (AUTO) 72.4 % (42-75); PLATELET COUNT 313 X10'3 (140-440); RED BLOOD COUNT 3.83 X10'6 (4.20-5.60); RED CELL DISTRIBUTION WIDTH 13.4 % (11.5-14.5); WHITE BLOOD COUNT 8.3 X10'3 (4.5-11.0)
[2023-05-20 11:11] LABS: CHLORIDE 100 MMOL/L (99-107); GLUCOSE 148 MG/DL (70-104); SODIUM 136 MMOL/L (135-145)
[2023-05-20 11:12] LABS: ALANINE AMINOTRANSFERASE 12 U/L (12-78); ALBUMIN 3.7 G/DL (3.4-5.0); ALBUMIN/GLOBULIN RATIO 1.1 (1.1-1.5); ALKALINE PHOSPHATASE 87 IU/L (46-116); ANION GAP 11 (8-16); ASPARTATE AMINO TRANSFERASE 23 U/L (10-37); BILIRUBIN,TOTAL 0.4 MG/DL (0.1-1.0); BLOOD UREA NITROGEN 31 MG/DL (7-18); BUN/CREATININE RATIO 13.4 (10.0-20.0); CALCIUM 9.8 MG/DL (8.5-10.1); CREATININE 2.32 MG/DL (0.40-0.90); TOTAL CARBON DIOXIDE 24.6 MMOL/L (24-32); TOTAL PROTEIN 7.1 G/DL (6.4-8.2); eCRCL 13 ML/MIN; eGFR 20 ML/MIN
[2023-05-20 11:14] LABS: C-REACTIVE PROTEIN 0.12 MG/DL (0.0-0.5)
[2023-05-20 11:30] LABS: POTASSIUM 4.4 MMOL/L (3.5-5.1)
[2023-05-20] MEDS ORDERED: TRIA15CR61 TOP (11:40)
[2023-05-20] MEDS ORDERED: HYDR-3686 PO (11:40)
== END 2023-05-20 12:02 | disposition home or self-care (01) ==
LOC: ER 09:35
DX: L50.9 Urticaria, unspecified (principal); I25.10 Atherosclerotic heart disease of native coronary artery without angina pectoris; E78.00 Pure hypercholesterolemia, unspecified; I10 Essential (primary) hypertension; Z86.73 Personal history of transient ischemic attack (TIA), and cerebral infarction without residual deficits; Z79.899 Other long term (current) drug therapy; Z88.5 Allergy status to narcotic agent; Z88.2 Allergy status to sulfonamides
CPT/HCPCS: 36415; 80053; 85025; 85651; 86140; 99283

== ENCOUNTER 2023-06-11 08:57 | Emergency (ER) | payer MEDICARE, OTHER ==
[~2023-06-11] VITALS: Ht 149.9 cm; Wt 53.4 kg
[~2023-06-11 08:57] MED LIST changes: +TRIA15CR61 TOP
[2023-06-11 09:25] VITALS: BP 157/57; PULSE 71; RESP 18; O2SAT 98
[2023-06-11] MEDS ORDERED: PRED20TA PO (09:34)
[2023-06-11] MEDS ORDERED: dexamethasone sod phosphate 10mg/ml inj PO STA (09:35)
[2023-06-11 10:09] VITALS: TEMP 97.6
== END 2023-06-11 10:11 | disposition home or self-care (01) ==
LOC: ER 08:58
DX: L50.9 Urticaria, unspecified (principal); I25.10 Atherosclerotic heart disease of native coronary artery without angina pectoris; E78.00 Pure hypercholesterolemia, unspecified; I10 Essential (primary) hypertension; Z86.73 Personal history of transient ischemic attack (TIA), and cerebral infarction without residual deficits; Z88.5 Allergy status to narcotic agent; Z88.2 Allergy status to sulfonamides; Z79.82 Long term (current) use of aspirin; Z79.899 Other long term (current) drug therapy
CPT/HCPCS: 99283; J1100

== ENCOUNTER 2024-03-19 12:15 | Emergency (ER) | payer MEDICARE, OTHER, MEDICAID ==
[~2024-03-19] VITALS: Ht 121.9 cm; Wt 94.9 kg
[~2024-03-19 12:15] MED LIST changes: -TRIA15CR61 TOP
[2024-03-19 13:41] LABS: APTT 26 SECONDS (22-32); INR 1.1 INR; PROTHROMBIN TIME 11.2 SECONDS (9.0-12.0)
[2024-03-19] MEDS ORDERED: LISI1TAB49 PO (13:49)
[2024-03-19 14:06] LABS: ALANINE AMINOTRANSFERASE 9 U/L (12-78); ALBUMIN 3.6 G/DL (3.4-5.0); ALBUMIN/GLOBULIN RATIO 1.2 (1.1-1.5); ALKALINE PHOSPHATASE 73 IU/L (46-116); ANION GAP 9 (8-16); ASPARTATE AMINO TRANSFERASE 17 U/L (10-37); BILIRUBIN,TOTAL 0.4 MG/DL (0.1-1.0); BLOOD UREA NITROGEN 41 MG/DL (7-18); BUN/CREATININE RATIO 15.2 (10.0-20.0); CALCIUM 9.5 MG/DL (8.5-10.1); CHLORIDE 102 MMOL/L (99-107); FREE T4 (FREE THYROXINE) 1.03 NG/DL (0.73-1.40); GLUCOSE 91 MG/DL (70-104); POTASSIUM 4.2 MMOL/L (3.5-5.1); SODIUM 135 MMOL/L (135-145); THYROID STIMULATING HORMONE 0.16 ulU/ml (0.34-4.50); TOTAL CARBON DIOXIDE 23.9 MMOL/L (24-32); TOTAL PROTEIN 6.7 G/DL (6.4-8.2); eCRCL 4 ML/MIN; eGFR 17 ML/MIN
[2024-03-19] MEDS: lisinopril 10 MG tablet PO ONE (14:37)
[2024-03-19 14:59] VITALS: BP 180/70; PULSE 64; RESP 13; TEMP 97.9; O2SAT 98
[2024-03-19 15:09] LABS: BASOPHILS # (AUTO) 0.1 X10'3 (0-0.2); BASOPHILS % (AUTO) 0.7 % (0-1); EOSINOPHILS # (AUTO) 0.3 X10'3 (0-0.9); EOSINOPHILS % (AUTO) 3.4 % (0-6); HEMATOCRIT 31.4 % (35.0-45.0); HEMOGLOBIN 10.4 g/dl (12.0-16.0); LYMPHOCYTES # (AUTO) 1.2 X10'3 (1.1-4.8); LYMPHOCYTES % (AUTO) 14.3 % (21-51); MEAN CORPUSCULAR HEMOGLOBIN 28.8 PG (27.0-31.0); MEAN CORPUSCULAR VOLUME 87.1 FL (78-98); MEAN PLATELET VOLUME 7.7 FL (7.4-10.4); MONOCYTES # (AUTO) 0.7 X10'3 (0-0.9); MONOCYTES % (AUTO) 8.9 % (2-12); NEUTROPHILS % (AUTO) 72.7 % (42-75); PLATELET COUNT 252 X10'3 (140-440); RED BLOOD COUNT 3.61 X10'6 (4.20-5.60); WHITE BLOOD COUNT 8.3 X10'3 (4.5-11.0)
== END 2024-03-19 15:12 | disposition home or self-care (01) ==
LOC: ER 12:16
DX: I10 Essential (primary) hypertension (principal); E78.00 Pure hypercholesterolemia, unspecified; I25.10 Atherosclerotic heart disease of native coronary artery without angina pectoris; R51.9 Headache, unspecified; R79.1 Abnormal coagulation profile; Z88.6 Allergy status to analgesic agent; Z88.2 Allergy status to sulfonamides; Z88.8 Allergy status to other drugs, medicaments and biological substances; Z79.899 Other long term (current) drug therapy; Z79.82 Long term (current) use of aspirin; Z86.73 Personal history of transient ischemic attack (TIA), and cerebral infarction without residual deficits; Z87.19 Personal history of other diseases of the digestive system
CPT/HCPCS: 36415; 71045; 80053; 84439; 84443; 84484; 85025; 85610; 85730; 93005; 99285